=== PATIENT | male | born 1955 | race Caucasian/White ===

== ENCOUNTER 2022-06-30 17:59 | Emergency (ER) | payer MEDICARE, OTHER ==
[~2022-06-30 17:59] MED LIST: Iopamidol 370 76% 100 ML VIAL ONE
[2022-06-30 18:35] LABS: #Basophils 0.1 thou/uL (0.0-0.2); #Eosinphils 0.1 thou/uL (0.0-0.7); #Lymphocytes 1.2 thou/uL (1.20-3.40); #Monocytes 0.9 thou/uL (0.11-0.59); #Neutrophils 8.5 thou/uL (1.40-6.50); %Basophils 0.7 % (0.0-1.0); %Eosinophils 0.8 % (0.0-10.0); %Lymphocytes 11.3 % (21.0-51.0); %Monocytes 8.6 % (0.0-10.0); %Neutrophils 78.6 % (42.0-75.0); Mean Corpuscular HGB CONC 33.1 g/dL (32.0-36.0); Mean Corpuscular Hemoglobin 28.4 pg (27.0-31.0); Mean Corpuscular Volume 85.9 fl (78.0-98.0); Mean Platelet Volume 9.6 fL (7.4-10.4); Platelet Count 147 10x3/uL (130-400); RBC Distribution Width 11.8 % (11.5-14.5); Red Blood Cell (RBC) Count 5.64 mill/uL (4.70-6.10); White Blood Cell (WBC) Count 10.8 10x3/uL (4.8-10.8)
[2022-06-30 18:53] LABS: ALT (SGPT) 9 U/L (8-55); AST (SGOT) 10 U/L (5-34); Alkaline Phosphatase 60 U/L (40-110); Anion Gap 14 mmol/L (10-20); BUN (Urea Nitrogen) 14 mg/dL (8.4-25.7); Bilirubin, Total 0.9 mg/dL (0.2-1.2); Calc. Creatinine Clearance 0 mL/min (70-130); Carbon Dioxide 25 mmol/L (23-31); Chloride 100 mmol/L (98-107); Estimated GFR 64; Globulin 3.7 g/dL (2.4-3.5); Glucose 249 mg/dL (80-115); Potassium 4.2 mmol/L (3.5-5.1); Protein, Total 7.7 g/dL (5.8-8.1); Sodium 135 mmol/L (136-145)
[2022-06-30] MEDS ORDERED: Sodium Chloride 0.9% 250 ML 250 ML ONE (18:59)
[2022-06-30] MEDS ORDERED: Vancomycin 1 GM VIAL ONE (18:59)
[2022-06-30] MEDS ORDERED: Sodium Chloride 0.9% 500 ML ONE (18:59)
[2022-06-30] MEDS ORDERED: Morphine 4 MG/ML VIAL ONE (19:48)
[2022-07-01] MEDS ORDERED: Sodium Chloride 0.9% 100 ML ONE (02:26)
[2022-07-01] MEDS ORDERED: Piperacillin/Tazobactam 4.5 GM VIAL ONE (02:26)
== END 2022-07-01 02:46 | disposition short-term general hospital (02) ==
LOC: MADERS 17:59
DX: L03.317 Cellulitis of buttock (principal); A41.9 Sepsis, unspecified organism; E78.00 Pure hypercholesterolemia, unspecified; E11.9 Type 2 diabetes mellitus without complications; F17.210 Nicotine dependence, cigarettes, uncomplicated; Z79.4 Long term (current) use of insulin
CPT/HCPCS: 36415; 72193; 80053; 83605; 83880; 85025; 87040; 93005; 96365; 96375; J2270; J2543; J3370; J3490; J7030; J7050; Q9967